=== PATIENT | female | born 2005 | race Two or more races ===

== ENCOUNTER 2023-06-26 01:49 | Inpatient (IN) | payer SELFPAY ==
[2023-06-26] MEDS ORDERED: Midazolam HCl 2 mg/2 ml Vial ONE ×2 (02:32→03:32)
[2023-06-26] MEDS ORDERED: Dexmedetomidine In 0.9 % NaCl 100 ML IVPB SCH ×2 (02:45→06:00)
[2023-06-26 02:51] LABS: Actual Bicarbonate (HCO3a) 17.9 mEq/L (22-28); Base Excess (BEa) -7.3 mEq/L (-2.0 to +3.0); CO2 Tension 35.5 mmHg (35.0-45.0); Calcium, Ionized (arterial) 1.05 mmol/L (1.12-1.30); Carboxyhemoglobin (COHb) 0.3 gm% (0.0-3.0); Hematocrit-ABG 37 % (36.0-47.0); Hemoglobin (Hb) 12.7 g/dL (12.0-16.0); Potassium - ABG Lab 2.96 mmol/L (3.70-5.30); Puncture Site LRA; pH, Arterial 7.321 (7.35-7.45)
[2023-06-26 02:57] LABS: ALV-art Gradient 34.425 mmHg (0-20)
[2023-06-26] MEDS ORDERED: PROPOFOL 200 MG/20 ML VIAL ONE (03:00)
[2023-06-26] MEDS ORDERED: Succinylcholine 200 MG/10 ml SYRINGE FS ONE (03:00)
[2023-06-26 03:07] LABS: #Eosinphils 0.3 10x3/uL (0.0-0.5); #Monocytes 0.3 10x3/uL (0.0-1.1); #Neutrophils 3.9 10x3/uL (1.5-8.4); %Basophils 0.1 % (0.0-2.0); %Eosinophils 3.2 % (0.0-6.0); %Lymphocytes 47.2 % (18.0-47.0); %Monocytes 3.2 % (0.0-10.0); %Neutrophils 45.6 % (40.0-75.0); Hemoglobin 11.8 g/dL (12.0-15.5); Mean Corpuscular HGB CONC 33.7 g/dL (32.0-36.0); Mean Corpuscular Hemoglobin 30.4 pg (27.0-33.0); Mean Corpuscular Volume 90.2 fl (81.6-98.3); Mean Platelet Volume 9.5 fl (7.4-10.4); Platelet Count 196 10x3/uL (150-450); RBC Distribution Width 12.1 % (11.5-14.5); Red Blood Cell (RBC) Count 3.88 10x6/uL (3.90-5.03); White Blood Cell (WBC) Count 8.7 10x3/uL (3.5-10.5)
[2023-06-26 03:13] LABS: BHCG - Serum Negative (NEGATIVE); PTT 26.1 sec (22.0-33.0); Pregs Control Background? CLEAR/WHITE (CLR/WHITE); Pregs Control Bar Appear? YES (CONTROL BAR); Prothrombin Time 10.8 sec (9.5-12.1)
[2023-06-26 03:13] LABS: Bilirubin Neg (Negative); Blood, Urine Negative (Negative); Clarity Clear (Clear); Glucose, Urine (Dipstick) Normal (Negative); Ketone, Urine Negative (Negative); Leukocyte Negative (Negative); Nitrite Negative (Negative); Protein, Urine (Dipstick) Negative (Neg-Trace); Urobilinogen Normal mg/dL (Less than 2)
[2023-06-26 03:16] LABS: ALT (SGPT) 11 U/L (8-55); AST (SGOT) 19 U/L (5-30); Albumin 3.9 g/dL (3.5-5.0); Alcohol 234.1 mg/dL (Less than 10); Alkaline Phosphatase 49 U/L (40-100); Anion Gap 16 mmol/L (10-20); BUN (Urea Nitrogen) 9 mg/dL (8.4-21.0); Bilirubin, Total 0.2 mg/dL (0.2-1.2); Calc. Creatinine Clearance 0 mL/min (70-130); Calcium 7.3 mg/dL (7.8-10.44); Carbon Dioxide 16 mmol/L (22-29); Chloride 115 mmol/L (98-107); Estimated GFR 126; Globulin 2.4 g/dL (2.4-3.5); Glucose 119 mg/dL (70-105); Potassium 2.9 mmol/L (3.5-5.1); Protein, Total 6.3 g/dL (6.0-8.3); Sodium 144 mmol/L (136-145)
[2023-06-26] MEDS ORDERED: EPINEPHrine 1 MG/ML VIAL ONE (03:19)
[2023-06-26 03:20] LABS: Amphetamine Not Detected (NotDetected); Barbiturates Screen Not Detected (NotDetected); Benzodiazepine Screen Not Detected (NotDetected); Cocaine Metabolite Screen Not Detected (NotDetected); Methadone Not Detected (NotDetected); Methamphetamine Not Detected (NotDetected); Opiate Screen Not Detected (NotDetected); Oxycodone Screen Not Detected (NotDetected); Phencyclidine (PCP) Not Detected (NotDetected); THC/Cannabinoid Screen Not Detected (NotDetected); Tricyclic Screen Not Detected (NotDetected)
[2023-06-26] MEDS ORDERED: Acetaminophen 650 MG Suppository PR PRN (03:38)
[2023-06-26] MEDS ORDERED: Ondansetron PF 4 MG/2 ML Vial IVP PRN (03:38)
[2023-06-26 03:40] LABS: Bacteria/HPF Rare-Few HPF (None Seen); CAUTI Indications for Culture Alt mental st,lethar; RBC/HPF None Seen HPF (0-3); WBC/HPF 0-3 HPF (0-3)
[2023-06-26 03:42] LABS: Urine Culture Reflex No No
[2023-06-26] MEDS ORDERED: Midazolam HCl 2 mg/2 ml Vial SLOW IVP PRN (03:45)
[2023-06-26] MEDS ORDERED: Propofol 1,000 MG/100 ML VIAL IV ONE (04:26)
[2023-06-26] MEDS ORDERED: Lactated Ringer's 1,000 ML IV SCH (06:00)
[2023-06-26] MEDS ORDERED: Calcium Gluc 4.6 MEQ/10 ML (100 MG/ML) SLOW IVP SCH (06:00)
[2023-06-26] MEDS ORDERED: Magnesium 2 GM/50 ML(in water) 2 GM in Premix Bag 1 BAG IVPB SCH (06:00)
[2023-06-26] MEDS: Potassium Chloride 20 MEQ in Premix Bag 1 BAG IVPB SCH ×3 (06:17→09:59)
[2023-06-26] MEDS ORDERED: Multivitamins, Adult 10 ML, Folic Acid 1 MG, Thiamine HCl 100 MG in Dextrose 5 %-0.45 %... IV SCH (06:30)
[2023-06-26] MEDS ORDERED: Propofol 1,000 MG/100 ML VIAL IV PRN (07:45)
[2023-06-26] MEDS ORDERED: Propofol BOLUS 1,000 MG/100 ML VIAL IV PRN (07:45)
[2023-06-26] MEDS ORDERED: Famotidine/PF 20 mg/2ml Vial SLOW IVP SCH (09:00)
[2023-06-26] MEDS ORDERED: FLU VACC QS2023-24(6MOS UP)/PF 60 MCG/0.5 ML SYRINGE IM ONE (09:30)
[2023-06-26 11:03] LABS: #Eosinphils 0.1 10x3/uL (0.0-0.5); #Monocytes 0.8 10x3/uL (0.0-1.1); #Neutrophils 9.5 10x3/uL (1.5-8.4); %Basophils 0.2 % (0.0-2.0); %Eosinophils 0.8 % (0.0-6.0); %Lymphocytes 20.3 % (18.0-47.0); %Monocytes 5.8 % (0.0-10.0); %Neutrophils 72.4 % (40.0-75.0); Hemoglobin 12.8 g/dL (12.0-15.5); Mean Corpuscular HGB CONC 32.8 g/dL (32.0-36.0); Mean Corpuscular Hemoglobin 29.7 pg (27.0-33.0); Mean Corpuscular Volume 90.5 fl (81.6-98.3); Mean Platelet Volume 9.6 fl (7.4-10.4); Platelet Count 202 10x3/uL (150-450); RBC Distribution Width 12.1 % (11.5-14.5); Red Blood Cell (RBC) Count 4.31 10x6/uL (3.90-5.03); White Blood Cell (WBC) Count 13.1 10x3/uL (3.5-10.5)
[2023-06-26 11:25] LABS: Anion Gap 14 mmol/L (10-20); BUN (Urea Nitrogen) 5 mg/dL (8.4-21.0); Calc. Creatinine Clearance 110 mL/min (70-130); Calcium 8.6 mg/dL (7.8-10.44); Carbon Dioxide 22 mmol/L (22-29); Chloride 112 mmol/L (98-107); Estimated GFR 126; Glucose 103 mg/dL (70-105); Potassium 4.5 mmol/L (3.5-5.1); Sodium 143 mmol/L (136-145)
[2023-06-26 12:27] VITALS: BP 126/87; TEMP 97.8
== END 2023-06-26 13:06 | disposition home or self-care (01) | DRG 896 ==
LOC: CSHERS 01:49 → CSHIMCU 05:14
PROVIDERS: ADMIT Student in an Organized Health Care Education/Training Program; ATTEND Internal Medicine
PROC: 0T9B70Z Drainage of Bladder with Drainage Device, Via Natural or Artificial Opening (ICD-10-PCS; principal; 2023-06-26)
PROC: 0DH67UZ Insertion of Feeding Device into Stomach, Via Natural or Artificial Opening (ICD-10-PCS; 2023-06-26)
PROC: 4A033R1 Measurement of Arterial Saturation, Peripheral, Percutaneous Approach (ICD-10-PCS; 2023-06-26)
PROC: 5A1935Z Respiratory Ventilation, Less than 24 Consecutive Hours (ICD-10-PCS; 2023-06-26)
DX: F10.129 Alcohol abuse with intoxication, unspecified (principal); J96.00 Acute respiratory failure, unspecified whether with hypoxia or hypercapnia; E87.20 Acidosis, unspecified; G93.40 Encephalopathy, unspecified; E87.6 Hypokalemia; D64.9 Anemia, unspecified; S00.83XA Contusion of other part of head, initial encounter; Z79.899 Other long term (current) drug therapy; X58.XXXA Exposure to other specified factors, initial encounter
CPT/HCPCS: 31500; 36415; 36600; 70450; 71045; 72125; 80053; 80306; 80307; 81001; 82805; 84703; 85025; 85610; 85730; 93005; 94002; 94003; 94760; 94762; J0171; J0612; J2250; J2405; J2704; J3411; J3475; J3480; J7042; J7120; S0028